=== PATIENT | male | born 1955 | race African-American/Black ===

== ENCOUNTER 2025-05-06 12:42 | Emergency (ER) | payer OTHER ==
[2025-05-06 13:58] LABS: #Basophils Less than 0.03 10x3/uL (0.0-0.2); #Eosinophils 0.06 10x3/uL (0.0-0.5); #Monocytes 0.44 10x3/uL (0.0-1.1); #Neutrophils 2.14 10x3/uL (1.5-8.4); %Basophils 0.4 % (0.0-2.0); %Eosinophils 1.3 % (0.0-6.0); %Lymphocytes 40.4 % (18.0-47.0); %Monocytes 9.8 % (0.0-10.0); %Neutrophils 47.9 % (40.0-75.0); Hematocrit 41.9 % (38.8-50.0); Hemoglobin 14.0 g/dL (13.5-17.5); Mean Corpuscular Hemoglobin 28.3 pg (27.0-33.0); Mean Corpuscular Volume 84.8 fL (81.2-95.1); Platelet Count 166 10x3/uL (150-450); Red Blood Cell (RBC) Count 4.94 10x6/uL (4.32-5.72); White Blood Cell (WBC) Count 4.48 10x3/uL (3.5-10.5)
[2025-05-06 14:12] LABS: ALT (SGPT) 16 U/L (Less than 45); AST (SGOT) 16 U/L (11-34); Albumin 3.5 g/dL (3.1-4.5); Alkaline Phosphatase 101 U/L (40-110); Anion Gap 11 mmol/L (10-20); BUN (Urea Nitrogen) 15 mg/dL (8.4-25.7); Bilirubin, Total 0.5 mg/dL (0.3-1.2); Calc. Creatinine Clearance 0 mL/min (70-130); Calcium 9.0 mg/dL (7.8-10.44); Carbon Dioxide 24 mmol/L (23-31); Chloride 104 mmol/L (98-107); Globulin 4.3 g/dL (2.4-3.5); Potassium 4.4 mmol/L (3.5-5.1); Sodium 135 mmol/L (136-145)
[2025-05-06 14:19] LABS: Troponin I 0.018 ng/mL (< 0.028)
[2025-05-06 14:55] LABS: Critical Call Chemistry NUR.AAJ@1454; Glucose 477 mg/dL (83-110)
[2025-05-06 15:46] LABS: Glucose, Urine (Dipstick) >=1000 mg/dL (Negative); Leukocyte Negative (Negative); Protein, Urine (Dipstick) 15 mg/dl (Neg-Trace); Specific Gravity, Urine 1.015 (1.005-1.030)
[2025-05-06 16:15] LABS: Bacteria/HPF 2+ HPF (None Seen); CAUTI Indications for Culture Alt mental st,lethar; RBC/HPF 0-3 HPF (0-3); WBC/HPF 0-3 HPF (0-3)
[2025-05-06 16:16] LABS: Mucous/LPF 1+ LPF (<2+)
[2025-05-06 16:19] LABS: Urine Culture Reflex No No
== END 2025-05-06 16:51 | disposition home or self-care (01) ==
LOC: CSHERS 12:42
DX: R73.9 Hyperglycemia, unspecified (principal); E86.0 Dehydration; R53.83 Other fatigue; I10 Essential (primary) hypertension
CPT/HCPCS: 36416; 71045; 80053; 81001; 84484; 85025; 85379; 87428; 93005; 96361; 96374; J1815